=== PATIENT | female | born 2005 | race Hispanic/Latino ===

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

== ENCOUNTER 2024-01-08 12:23 | Emergency (ER) | payer SELFPAY ==
[~2024-01-08] VITALS: Ht 162.6 cm; Wt 99.3 kg
[~2024-01-08 12:23] MED LIST changes: +KETOCONAZOLE15 GM TOP
[2024-01-08 12:41] VITALS: PULSE 108; RESP 18; TEMP 99.4
[2024-01-08] MEDS ORDERED: DIPHENHYDRAMINE25 M2 PO (12:45)
[2024-01-08] MEDS ORDERED: AMOX TR-K CLV1 EAC2 PO (12:45)
[2024-01-08 14:28] VITALS: BP 121/58; PULSE 63; RESP 16; TEMP 98.5; O2SAT 98
== END 2024-01-08 14:00 | disposition home or self-care (01) ==
LOC: FSED 12:29
DX: R50.9 Fever, unspecified (principal); J02.9 Acute pharyngitis, unspecified; R05.9 Cough, unspecified; R53.81 Other malaise; Z11.52 Encounter for screening for COVID-19
CPT/HCPCS: 0223U; 83518; 87400; 99283

== ENCOUNTER 2024-02-18 13:04 | Emergency (ER) | payer SELFPAY ==
[~2024-02-18] VITALS: Ht 162.6 cm; Wt 98.0 kg
[~2024-02-18 13:04] MED LIST changes: +AMOX TR-K CLV1 EAC2 PO; +DIPHENHYDRAMINE25 M2 PO
[2024-02-18 13:12] VITALS: PULSE 77; RESP 20; TEMP 98.7
[2024-02-18] MEDS ORDERED: NASACORT16.9 ML (13:32)
[2024-02-18] MEDS ORDERED: CEFDINIR300 MG PO (13:32)
[2024-02-18] MEDS: CEFTRIAXONE 1 GM VIAL IM ONE (13:52)
[2024-02-18 13:57] VITALS: BP 115/70; PULSE 70; RESP 15; TEMP 98.4; O2SAT 99
[2024-02-18] MEDS: ACETAMINOPHEN 325 MG TAB PO ONE (14:28)
== END 2024-02-18 14:31 | disposition home or self-care (01) ==
LOC: FSED 13:15
DX: H66.92 Otitis media, unspecified, left ear (principal); J30.9 Allergic rhinitis, unspecified; R09.81 Nasal congestion
CPT/HCPCS: 99283; J0696

== ENCOUNTER 2024-09-25 23:30 | Emergency (ER) | payer SELFPAY ==
[~2024-09-25] VITALS: Ht 162.6 cm; Wt 97.1 kg
[~2024-09-25 23:30] MED LIST changes: +CEFDINIR300 MG PO; +NASACORT16.9 ML
[2024-09-25 23:36] VITALS: PULSE 93; RESP 18; TEMP 98.5
[2024-09-26] MEDS: KETOROLAC TROMETHAMINE 60 MG/2 ML VIAL IM ONE (00:13)
[2024-09-26] MEDS: DEXAMETHASONE SOD PHOS 10 MG/1 ML VIAL IM ONE ×2 (00:13→00:50)
[2024-09-26] MEDS: DEXAMETHASONE SOD PHOS INJ 4 MG/ML SDV IM ONE (00:31)
[2024-09-26] MEDS ORDERED: AMOXICILLIN500 MG PO (00:42)
[2024-09-26] MEDS ORDERED: IBUPROFEN600 MG PO (00:43)
[2024-09-26 00:51] VITALS: BP 124/72; O2SAT 97
== END 2024-09-26 00:53 | disposition home or self-care (01) ==
LOC: FSED 23:33
DX: H92.03 Otalgia, bilateral (principal); J02.9 Acute pharyngitis, unspecified; J45.909 Unspecified asthma, uncomplicated; F41.9 Anxiety disorder, unspecified; F32.A Depression, unspecified
CPT/HCPCS: 81003; 81025; 83518 ×2; 99283; J1100; J1885

== ENCOUNTER 2025-01-30 19:48 | Emergency (ER) | payer SELFPAY ==
[~2025-01-30] VITALS: Ht 162.6 cm; Wt 91.6 kg
[~2025-01-30 19:48] MED LIST changes: +AMOXICILLIN500 MG PO; +IBUPROFEN600 MG PO
[2025-01-30 20:03] VITALS: PULSE 79; RESP 18; TEMP 97.2
[2025-01-30] MEDS ORDERED: CETIRIZINE HCL10 M1 PO (20:37)
[2025-01-30 21:00] VITALS: BP 111/75; PULSE 79; RESP 18; TEMP 97.2; O2SAT 99
== END 2025-01-30 21:00 | disposition home or self-care (01) ==
LOC: FSED 19:55
DX: J06.9 Acute upper respiratory infection, unspecified (principal)
CPT/HCPCS: 0223U; 87400; 99282